=== PATIENT | female | born 1995 | race African-American/Black ===

== ENCOUNTER 2022-04-21 02:10 | Day surgery (SDC) | payer OTHER ==
[2022-04-21] MEDS ORDERED: hydrALAZINE 20 MG/ML VIAL SLOW IVP PRN (03:17)
== END 2022-04-21 04:54 | disposition home or self-care (01) ==
LOC: CSHLD/OP 02:10
PROVIDERS: ATTEND Family Medicine
DX: O60.03 Preterm labor without delivery, third trimester (principal); Z3A.31 31 weeks gestation of pregnancy; O30.043 Twin pregnancy, dichorionic/diamniotic, third trimester
CPT/HCPCS: 76819; 99283